=== PATIENT | male | born 1955 | race African-American/Black ===

== ENCOUNTER 2022-04-18 08:24 | Emergency (ER) | payer MEDICARE ==
[2022-04-18 08:56] LABS: #Lymphocytes 1.2 thou/uL (1.20-3.40); #Monocytes 0.4 thou/uL (0.11-0.59); #Neutrophils 5.2 thou/uL (1.40-6.50); %Basophils 0.6 % (0.0-1.0); %Eosinophils 0.6 % (0.0-10.0); %Lymphocytes 17.6 % (21.0-51.0); %Monocytes 6.3 % (0.0-10.0); Hemoglobin 11.9 g/dL (14.0-18.0); Mean Corpuscular HGB CONC 31.8 g/dL (32.0-36.0); Mean Corpuscular Hemoglobin 28.2 pg (27.0-31.0); Mean Corpuscular Volume 88.6 fl (78.0-98.0); Mean Platelet Volume 7.9 fL (7.4-10.4); Platelet Count 461 10x3/uL (130-400); RBC Distribution Width 12.8 % (11.5-14.5); Red Blood Cell (RBC) Count 4.21 mill/uL (4.70-6.10); White Blood Cell (WBC) Count 6.9 10x3/uL (4.8-10.8)
[2022-04-18 09:19] LABS: ALT (SGPT) 12 U/L (8-55); AST (SGOT) 16 U/L (5-34); Albumin 3.7 g/dL (3.4-4.8); Alkaline Phosphatase 110 U/L (40-110); Anion Gap 16 mmol/L (10-20); BUN (Urea Nitrogen) 20 mg/dL (8.4-25.7); Bilirubin, Total 0.2 mg/dL (0.2-1.2); Calc. Creatinine Clearance 0 mL/min (70-130); Calcium 9.3 mg/dL (7.8-10.44); Carbon Dioxide 23 mmol/L (23-31); Chloride 106 mmol/L (98-107); Estimated GFR 58; Globulin 4.2 g/dL (2.4-3.5); Glucose 121 mg/dL (80-115); Potassium 3.7 mmol/L (3.5-5.1); Protein, Total 7.9 g/dL (5.8-8.1); Sodium 141 mmol/L (136-145)
[2022-04-18] MEDS ORDERED: Iopamidol-370 76% 500 ML 1 ML ONE (09:32)
[2022-04-18] MEDS ORDERED: Morphine 4 MG/ML VIAL ONE (13:26)
[2022-04-18] MEDS ORDERED: Ondansetron PF 4 MG/2 ML Vial ONE (13:26)
[2022-04-18 14:25] LABS: Bacteria/HPF None Seen HPF (None Seen); Bilirubin Negative (Negative); Blood, Urine Trace (Negative); Clarity Clear (Clear); Glucose, Urine (Dipstick) Greater than 1000 mg/dL (Negative); Ketone, Urine 10 mg/dL (Negative); Leukocyte Negative Leu/uL (Negative); Nitrite Negative (Negative); Protein, Urine (Dipstick) 70 mg/dL (Neg-Trace); RBC/HPF 0-3 HPF (0-3); Squamous Epithelial None Seen HPF (0-3); Urobilinogen Normal mg/dL (Less than 2); WBC/HPF 0-3 HPF (0-3); pH, Urine 6.5 (5.0-9.0)
[2022-04-18 15:29] LABS: SARS-CoV-2 NAA Rapid Test Not Detected (NotDetected)
== END 2022-04-18 18:10 | disposition short-term general hospital (02) ==
LOC: ERS 08:24
DX: K86.9 Disease of pancreas, unspecified (principal); R16.0 Hepatomegaly, not elsewhere classified; R91.1 Solitary pulmonary nodule; Z20.822 Contact with and (suspected) exposure to COVID-19
CPT/HCPCS: 74177; 80053; 83690; 85025; U0002; 36415; 81003; 81015; 96374; 96375; J2270; J2405; Q9967

== ENCOUNTER 2022-05-18 10:26 | Day surgery (SDC) | payer MEDICARE ==
[2022-05-18] MEDS ORDERED: diphenhydrAMINE 25 MG CAP PO SCH (11:00)
[2022-05-18] MEDS ORDERED: Acetaminophen 500 MG TAB PO SCH (11:00)
[2022-05-18] MEDS ORDERED: diphenhydrAMINE 25 MG CAP ONE (11:25)
[2022-05-18] MEDS ORDERED: Acetaminophen 500 MG TAB ONE (11:25)
[2022-05-18 14:38] VITALS: BP 157/74; TEMP 98.2
== END 2022-05-18 14:39 | disposition home or self-care (01) ==
LOC: ONC/OP 10:26
PROVIDERS: ATTEND Internal Medicine Hematology & Oncology
PROC: 30233N1 Transfusion of Nonautologous Red Blood Cells into Peripheral Vein, Percutaneous Approach (ICD-10-PCS; principal; 2022-05-18)
DX: D64.9 Anemia, unspecified (principal); D69.6 Thrombocytopenia, unspecified; Z88.5 Allergy status to narcotic agent
CPT/HCPCS: 36430; 86850; 86900; 86901; 86920; P9016; J1642

== ENCOUNTER 2022-06-01 09:36 | Day surgery (SDC) | payer MEDICARE ==
[2022-06-01] MEDS ORDERED: Acetaminophen 500 MG TAB PO SCH (10:00)
[2022-06-01] MEDS ORDERED: diphenhydrAMINE 25 MG CAP PO SCH (10:00)
[2022-06-01] MEDS ORDERED: diphenhydrAMINE 25 MG CAP ONE (10:32)
[2022-06-01] MEDS ORDERED: Acetaminophen 500 MG TAB ONE (10:32)
[2022-06-01 13:54] VITALS: BP 144/68; TEMP 97.8
== END 2022-06-01 13:42 | disposition home or self-care (01) ==
LOC: ONC/OP 09:36
PROVIDERS: ATTEND Internal Medicine Hematology & Oncology
PROC: 30233N1 Transfusion of Nonautologous Red Blood Cells into Peripheral Vein, Percutaneous Approach (ICD-10-PCS; principal; 2022-06-01)
DX: D64.9 Anemia, unspecified (principal); D69.6 Thrombocytopenia, unspecified; Z88.5 Allergy status to narcotic agent
CPT/HCPCS: 36430; 86850; 86900; 86901; 86920; P9016; J1642